=== PATIENT | male | born 1965 | race Caucasian/White ===

== ENCOUNTER 2016-11-09 13:40 | Emergency (ER) | payer SELFPAY ==
[2016-11-09] MEDS ORDERED: Sodium Chloride 0.9% 10 ML Syringe FLUSH PRN (15:03)
[2016-11-09] MEDS ORDERED: Iopamidol 612 MG/ML 150 ML Bottle IVPUSH ONE (16:30)
[2016-11-09] MEDS ORDERED: Diatrizoate Meglumine/Diatrizoate Sodium 37% 120 ML Bottle PO ONE (16:30)
[2016-11-09] MEDS ORDERED: metroNIDAZOLE/Normal Saline 500 MG in Premix Bag 1 BAG IV ONE (17:32)
[2016-11-09] MEDS ORDERED: Levofloxacin/Dextrose 5%-Water 750 MG in Premix Bag 1 BAG IV ONE (17:32)
--- NOTE | 2016-11-09 18:03 | EDM.PDOC ---
ED HPI GENERAL MEDICAL PROBLEM - General Chief Complaint: Abdominal Pain Stated Complaint: ABDOMINAL PAIN Time Seen by Provider: 11/09/16 13:51 Source of Information: Reports: Patient History Limitations: Reports: No Limitations - History of Present Illness INITIAL COMMENTS - FREE TEXT/NARRATIVE: The patient presents with lower abdominal pain that has been there for about 1 week. He has no nausea or vomiting. He can still eat and food does not affect the pain. He has no nausea or vomiting. He has no diarrhea or constipation. He has no dysuria. He still has his appendix and gallbladder. He has no fever , chills, chest pain or shortness of breath. Onset: Gradual Duration: Week(s): (over 1 week) Location: Reports: Abdomen Quality: Reports: Sharp Severity: Moderate Improves with: Reports: None Worsens with: Reports: None Associated Symptoms: Denies: Fever/Chills, Nausea/Vomiting, Shortness of Breath Lower Abdominal Pain Score (Numeric/FACES): 4 - Related Data Allergies Allergy/AdvReac Type Severity Reaction Status Date / Time No Known Allergies Allergy Verified 11/09/16 13:54 Home Meds: Home Meds Aspirin [Lo-Dose Aspirin EC] 81 mg PO DAILY 11/09/16 [History] Teriflunomide [Aubagio] 14 mg PO DAILY 11/09/16 [History] Zolpidem [Ambien] 10 mg PO BEDTIME PRN 11/09/16 [History] Past Medical History - Past Health History Medical/Surgical History: Denies Medical/Surgical History Neurological History: Reports: MS Social & Family History - Family History Family Medical History: Noncontributory - Tobacco Use Smoking Status *Q: Never Smoker - Caffeine Use Caffeine Use: Reports: Coffee, Soda - Recreational Drug Use Recreational Drug Use: No ED ROS GENERAL - Review of Systems Review Of Systems: See Below Constitutional: Reports: No Symptoms HEENT: Reports: No Symptoms Respiratory: Reports: No Symptoms Cardiovascular: Reports: No Symptoms Endocrine: Reports: No Symptoms GI/Abdominal: Reports: Abdominal Pain. Denies: Constipation, Diarrhea, Nausea, Vomiting : Reports: No Symptoms Musculoskeletal: Reports: No Symptoms ED EXAM, GI/ABD - Physical Exam Exam: See Below Exam Limited By: No Limitations General Appearance: Alert, No Apparent Distress Ears: Normal External Exam Nose: Normal Inspection Head: Atraumatic, Normocephalic Neck: Normal Inspection Respiratory/Chest: No Respiratory Distress, Lungs Clear, Normal Breath Sounds Cardiovascular: Regular Rate, Rhythm, No Edema, No Murmur GI/Abdominal Exam: Soft, No Organomegaly, No Mass, Tender (Moderate to the lower abdomen) Course - Vital Signs Last Recorded V/S: Last Vital Signs Temp 98.1 F 11/09/16 13:50 Pulse 94 11/09/16 13:50 Resp 16 11/09/16 13:50 BP 137/92 H 11/09/16 13:50 Pulse Ox 97 11/09/16 13:50 - Orders/Labs/Meds Orders: Active Orders 24 hr Category Date Time Status Peripheral IV Care [RC] . DIRECTED Care 11/09/16 15:03 Active Abdomen 1V Upright [CR] Stat Exams 11/09/16 14:06 Taken Abdomen Pelvis w Cont [CT] Stat Exams 11/09/16 15:03 Taken Levofloxacin/Dextrose 5%-Water [Levaquin in D5W 750 MG/ Med 11/09/16 17:32 Active 150 ML] 750 mg Premix Bag 1 bag IV ONETIME Sodium Chloride 0.9% [Saline Flush] Med 11/09/16 15:03 Active 10 ml FLUSH ASDIRECTED PRN metroNIDAZOLE/Normal Saline [Flagyl 500 MG in NS 100 ML Med 11/09/16 17:32 Active ] 500 mg Premix Bag 1 bag IV ONETIME Peripheral IV Insertion Adult [OM.PC] Routine Oth 11/09/16 15:03 Ordered Medication Orders Levofloxacin/Dextrose 750 mg/ (Premix) 150 mls @ 100 mls/hr IV ONETIME ONE Stop: 11/09/16 19:01 Metronidazole 500 mg/ Premix 100 mls @ 100 mls/hr IV ONETIME ONE Stop: 11/09/16 18:31 Sodium Chloride (Saline Flush) 10 ml FLUSH ASDIRECTED PRN PRN Reason: Keep Vein Open Last Admin: 11/09/16 16:47 Dose: 10 ml Labs: Laboratory Tests 11/09/16 11/09/16 11/09/16 Range/Units 14:20 14:20 14:40 WBC 15.04 H (4.23-9.07) K/mm3 RBC 4.13 L (4.63-6.08) M/mm3 Hgb 10.5 L (13.7-17.5) gm/L Hct 32.4 L (40.1-51.0) % MCV 78.5 L (79.0-92.2) fl MCH 25.4 L (25.7-32.2) pg MCHC 32.4 (32.2-35.5) g/dl RDW Std Deviation 44.5 H (35.1-43.9) fL Plt Count 608 H (163-337) K/mm3 MPV 8.3 L (9.4-12.3) fl Neut % (Auto) 79.2 H (34.0-67.9) % Lymph % (Auto) 4.6 L (21.8-53.1) % [place] % (Auto) 14.4 H (5.3-12.2) % Eos % (Auto) 0.7 L (0.8-7.0) Baso % (Auto) 0.4 (0.1-1.2) % Neut # (Auto) 11.93 H (1.78-5.38) K/mm3 Lymph # (Auto) 0.69 L (1.32-3.57) K/mm3 [place] # (Auto) 2.16 H (0.30-0.82) K/mm3 Eos # (Auto) 0.10 (0.04-0.54) K/mm3 Baso # (Auto) 0.06 (0.01-0.08) K/mm3 Manual Slide Review Abnormal smear Sodium 134 L (136-145) mEq/L Potassium 3.8 (3.5-5.1) mEq/L Chloride 99 (98-107) mEq/L Carbon Dioxide 24 (21-32) mEq/L Anion Gap 14.8 (5-15) BUN 11 (7-18) mg/dL Creatinine 1.1 (0.7-1.3) mg/dL Est Cr Clr Drug Dosing 78.59 mL/min Estimated GFR (MDRD) > 60 (>60) mL/min BUN/Creatinine Ratio 10.0 L (14-18) Glucose 106 (74-106) mg/dL Calcium 9.0 (8.5-10.1) mg/dL Total Bilirubin 0.6 (0.2-1.0) mg/dL AST 34 (15-37) U/L ALT 66 H (16-63) U/L Alkaline Phosphatase 133 H (46-116) U/L Total Protein 8.1 (6.4-8.2) g/dl Albumin 2.9 L (3.4-5.0) g/dl Globulin 5.2 gm/dL Albumin/Globulin Ratio 0.6 L (1-2) Lipase 98 (73-393) U/L Urine Color Yellow (Yellow) Urine Appearance Clear (Clear) Urine pH 6.5 (5.0-8.0) Ur Specific [place] 1.025 (1.005-1.030) Urine Protein 2+ H (Negative) Urine Glucose (UA) Negative (Negative) Urine Ketones Negative (Negative) Urine Occult Blood Negative (Negative) Urine Nitrite Negative (Negative) Urine Bilirubin Negative (Negative) Urine Urobilinogen 0.2 (0.2-1.0) Ur Leukocyte Esterase Negative (Negative) Urine RBC Not seen (0-5) /hpf Urine WBC Not seen (0-5) /hpf Ur Epithelial Cells Not seen (0-5) /hpf Urine Bacteria Few (FEW) /hpf Urine Mucus Not seen (FEW) /hpf Urine Yeast Not seen (NOT SEEN) Meds: Medications Generic Name Dose Route Start Last Admin Trade Name Freq PRN Reason Stop Dose Admin Levofloxacin/Dextrose 750 mg/ 150 mls @ 100 mls/hr 11/09/16 17:32 Premix IV 11/09/16 19:01 ONETIME ONE Metronidazole 500 mg/ Premix 100 mls @ 100 mls/hr 11/09/16 17:32 IV 11/09/16 18:31 ONETIME ONE Sodium Chloride 10 ml 11/09/16 15:03 11/09/16 16:47 Saline Flush FLUSH 10 ml ASDIRECTED PRN Administration Keep Vein Open Discontinued Medications Generic Name Dose Route Start Last Admin Trade Name Freq PRN Reason Stop Dose Admin Diatrizoate Meglum/Diatrizoate Sod 90 ml 11/09/16 16:30 11/09/16 16:47 Gastrografin 37% PO 11/09/16 16:31 90 ml ONETIME ONE Administration Iopamidol 125 ml 11/09/16 16:30 11/09/16 16:47 Isovue-300 (61%) IVPUSH 11/09/16 16:31 125 ml ONETIME ONE Administration - Re-Assessments/Exams Free Text/Narrative Re-Assessment/Exam: 11/09/16 18:06 The patient wanted to do this as cheep as possible. I ordered labs and an abdominal x-ray. His WBC was elevated at 15,000 so I ordered an IV and a CT of his abdomen and pelvis. The CT shows diffuse thickening of a long segment of distal small bowel extending into the terminal ileum. Medial to the ileocecal valve is a collection of gas and enteric contrast measuring 5 X 4.7 X 4.5cm. There is question of additional focal possible ulceration along the medial border of the small bowel, with a pocket of contrast and gas, fairly well- contained measuring 8mm. This is best appreciated on coronal reconstructions. There is question of additional mild thickening of the rectosigmoid colon. No findings to suggest acute appendicitis. I ordered levaquin 750mg IV and flagyl 500mg IV. I called Dr Horta our general surgeon long haul truck driver and he felt this was not someone we can take care of here. I talked to Dr Fisher and he accepted the patient. Departure - Departure Time of Disposition: 18:10 Disposition: DC/Tfer to [facility] Condition: Serious Clinical Impression: Perforated viscus - Discharge Information Forms: ED Department Discharge - My Orders Last 24 Hours: My Active Orders 11/09/16 14:06 Abdomen 1V Upright [CR] Stat 11/09/16 15:03 Peripheral IV Care [RC] . DIRECTED Abdomen Pelvis w Cont [CT] Stat Sodium Chloride 0.9% [Saline Flush] 10 ml FLUSH ASDIRECTED PRN Peripheral IV Insertion Adult [OM.PC] Routine 11/09/16 17:32 Levofloxacin/Dextrose 5%-Water [Levaquin in D5W 750 MG/150 ML] 750 mg Premix Bag 1 bag IV ONETIME metroNIDAZOLE/Normal Saline [Flagyl 500 MG in NS 100 ML] 500 mg Premix Bag 1 bag IV ONETIME - Assessment/Plan Last 24 Hours: My Active Orders 11/09/16 14:06 Abdomen 1V Upright [CR] Stat 11/09/16 15:03 Peripheral IV Care [RC] . DIRECTED Abdomen Pelvis w Cont [CT] Stat Sodium Chloride 0.9% [Saline Flush] 10 ml FLUSH ASDIRECTED PRN Peripheral IV Insertion Adult [OM.PC] Routine 11/09/16 17:32 Levofloxacin/Dextrose 5%-Water [Levaquin in D5W 750 MG/150 ML] 750 mg Premix Bag 1 bag IV ONETIME metroNIDAZOLE/Normal Saline [Flagyl 500 MG in NS 100 ML] 500 mg Premix Bag 1 bag IV ONETIME
[2016-11-09 18:16] VITALS: BP 142/97
[2016-11-09] MEDS ORDERED: Lactated Ringers 1,000 ML IV SCH (18:30)
--- NOTE | 2016-11-11 10:32 | CR ---
Abdomen: Upright view of the abdomen was obtained. Liver is slightly generous in size. Bowel gas pattern is normal. No abnormal calcifications or discrete soft tissue abnormality is seen. Impression: 1. Generous liver size. 2. Upright abdominal x-ray is otherwise unremarkable. Diagnostic code #2
--- NOTE | 2016-11-11 10:32 | CT ---
CT abdomen and pelvis Technique: Multiple axial sections were obtained from above the dome of the diaphragm inferiorly through the pubic symphysis. Intravenous and oral contrast was utilized. Comparison: No prior CT exam, previous abdominal x-ray performed earlier on the same date (2:15 PM). Findings: Inflammatory-type bowel wall thickening is seen within the distal ileum. Extraluminal collection of contrast and air is seen next to the terminal ileum. This collection of air and contrast is compatible with perforation and abscess. This finding measures about 5.4 cm in size. There is also mild bowel wall thickening of the sigmoid colon. No small bowel dilatation is seen. Appendix is seen which appears normal. Visualized lung bases show nothing acute. Liver is mildly generous in size but no focal abnormality is identified. Spleen appears within normal limits. Adrenal glands show no nodule. Kidneys show symmetric contrast enhancement without hydronephrosis or mass. Aorta shows no aneurysmal dilatation. No retroperitoneal adenopathy or mesenteric abnormalities are seen. Pancreas appears within normal limits. No pelvic mass or adenopathy is seen. Delayed images show contrast within the bladder. Bone window settings were reviewed which appear within normal limits for the patient's age. Impression: 1. Prominent bowel wall thickening within the distal ileum. Collection of air and contrast next to the distal ileum compatible with perforation and abscess. Bowel wall thickening noted within the sigmoid colon. Findings are felt compatible with inflammatory bowel disease with most likely etiology being Crohn's disease. 2. Generous size of the liver felt to be incidental. 3. Nothing else acute is appreciated on CT study of the abdomen and pelvis. Diagnostic code #5 Agree with preliminary report issued by [facility] ([facility] preliminary report dictated on 11/09/16, 6:07 PM Central Time)
== END 2016-11-09 18:52 ==
LOC: JD.ED 13:40
DX: K63.1 Perforation of intestine (nontraumatic) (principal); Z79.82 Long term (current) use of aspirin; Z79.899 Other long term (current) drug therapy
CPT/HCPCS: 36415; 74000; 74177; 80053; 81001; 83690; 85025; 96365; 99285; J1956; J7050; J7120; Q9963; Q9967

== ENCOUNTER 2020-03-22 07:29 | Emergency (ER) | payer SELFPAY ==
[2020-03-22] MEDS ORDERED: Sodium Chloride 0.9% 10 ML Syringe FLUSH PRN (08:06)
[2020-03-22] MEDS ORDERED: Sodium Chloride 0.9% 1,000 ML IV SCH (08:15)
--- NOTE | 2020-03-22 08:19 | EDM.PDOC ---
ED HPI GENERAL MEDICAL PROBLEM - General Chief Complaint: Fever Stated Complaint: COVID + Time Seen by Provider: 03/22/20 07:38 Source of Information: Reports: Patient History Limitations: Reports: No Limitations - History of Present Illness INITIAL COMMENTS - FREE TEXT/NARRATIVE: The patient presents with a fever, cough and shortness of breath. This has been going on for a few days. He is COVID 19 positive. He said Thursday he started having a cough and he got tested Thursday. He came back positive. He has a fever, cough, generalized weakness and diarrhea. He has MS. He does not smoke. He has no lung issues such as asthma or COPD. He has no cardiac history. He has no hypertension or hypercholesterolemia. He does have some chest tightness and shortness of breath. Onset: Gradual Duration: Week(s): Location: Reports: Chest Quality: Reports: Other (tightness) Severity: Mild Improves with: Reports: None Worsens with: Reports: None Associated Symptoms: Reports: Chest Pain, Cough, Fever/Chills, Shortness of Breath. Denies: Headaches, Nausea/Vomiting - Related Data Allergies Allergy/AdvReac Type Severity Reaction Status Date / Time Penicillins Allergy Hives Verified 03/22/20 07:44 Home Meds: Home Meds Aspirin [Lo-Dose Aspirin EC] 81 mg PO DAILY 11/09/16 [History] Teriflunomide [Aubagio] 14 mg PO DAILY 11/09/16 [History] Zolpidem [Ambien] 10 mg PO BEDTIME PRN 11/09/16 [History] Past Medical History - Past Health History Medical/Surgical History: Denies Medical/Surgical History Neurological History: Reports: MS Social & Family History - Family History Family Medical History: No Pertinent Family History - Tobacco Use Tobacco Use Status *Q: Never Tobacco User - Caffeine Use Caffeine Use: Reports: None - Recreational Drug Use Recreational Drug Use: Yes Recreational Drug Type: Reports: Marijuana/Hashish ED ROS GENERAL - Review of Systems Review Of Systems: See Below Constitutional: Reports: Fever, Chills, Malaise, Weakness, Fatigue HEENT: Reports: No Symptoms Respiratory: Reports: Shortness of Breath, Cough Cardiovascular: Reports: Chest Pain Endocrine: Reports: No Symptoms GI/Abdominal: Reports: Diarrhea. Denies: Abdominal Pain, Nausea, Vomiting : Reports: No Symptoms Musculoskeletal: Reports: No Symptoms Skin: Reports: No Symptoms ED EXAM, GENERAL - Physical Exam Exam: See Below Exam Limited By: No Limitations General Appearance: Alert, No Apparent Distress Ears: Normal External Exam Nose: Normal Inspection Head: Atraumatic, Normocephalic Neck: Normal Inspection Respiratory/Chest: No Respiratory Distress, Lungs Clear, Normal Breath Sounds Cardiovascular: Regular Rate, Rhythm, No Edema, No Murmur GI/Abdominal: Soft, Non-Tender, No Organomegaly, No Mass Back Exam: Normal Inspection Extremities: Normal Inspection #1 Interpretation EKG Date: 03/22/20 Time: 08:54 Rhythm: NSR Rate (Beats/Min): 92 [place]: Normal P-Wave: Present QRS: Normal ST-T: Normal QT: Prolonged Course - Vital Signs Last Recorded V/S: Last Vital Signs Temp 99.5 F 03/22/20 07:40 Pulse 108 H 03/22/20 07:40 Resp 20 03/22/20 07:40 BP 153/67 H 03/22/20 07:40 Pulse Ox 95 03/22/20 07:40 - Orders/Labs/Meds Orders: Active Orders 24 hr Category Date Time Status Cardiac Monitoring [RC] . DIRECTED Care 03/22/20 08:06 Active EKG Documentation Completion [RC] STAT Care 03/22/20 08:06 Active Peripheral IV Care [RC] . DIRECTED Care 03/22/20 08:06 Active Sodium Chloride 0.9% [Normal Saline] 1,000 ml Med 03/22/20 08:15 Active IV .BOLUS Sodium Chloride 0.9% [Saline Flush] Med 03/22/20 08:06 Active 10 ml FLUSH ASDIRECTED PRN Peripheral IV Insertion Adult [OM.PC] Stat Oth 03/22/20 08:06 Ordered Medication Orders Sodium Chloride (Normal Saline) 1,000 mls @ 1,000 mls/hr IV .BOLUS CHIDI Last Admin: 03/22/20 08:36 Dose: 1,000 mls/hr Documented by: GARTH Sodium Chloride (Saline Flush) 10 ml FLUSH ASDIRECTED PRN PRN Reason: Keep Vein Open Last Admin: 03/22/20 08:37 Dose: 10 ml Documented by: GARTH Labs: Laboratory Tests 12/31/20 12/31/20 12/31/20 Range/Units 08:35 08:35 08:35 WBC 7.34 (4.23-9.07) K/mm3 RBC 5.24 (4.63-6.08) M/mm3 Hgb 13.4 L D (13.7-17.5) gm/dl Hct 42.5 (40.1-51.0) % MCV 81.1 (79.0-92.2) fl MCH 25.6 L (25.7-32.2) pg MCHC 31.5 L (32.2-35.5) g/dl RDW Std Deviation 50.9 H (35.1-43.9) fL Plt Count 319 D (163-337) K/mm3 MPV 8.8 L (9.4-12.3) fl Neut % (Auto) 88.2 H (34.0-67.9) % Lymph % (Auto) 4.9 L (21.8-53.1) % [place] % (Auto) 4.6 L (5.3-12.2) % Eos % (Auto) 1.2 (0.8-7.0) Baso % (Auto) 0.4 (0.1-1.2) % Neut # (Auto) 6.47 H (1.78-5.38) K/mm3 Lymph # (Auto) 0.36 L (1.32-3.57) K/mm3 [place] # (Auto) 0.34 (0.30-0.82) K/mm3 Eos # (Auto) 0.09 (0.04-0.54) K/mm3 Baso # (Auto) 0.03 (0.01-0.08) K/mm3 Manual Slide Review Abnormal smear D-Dimer, Quantitative 1.09 H (0.19-0.50) mg/L Sodium 131 L (136-145) mEq/L Potassium 3.4 L (3.5-5.1) mEq/L Chloride 101 (98-107) mEq/L Carbon Dioxide 23 (21-32) mEq/L Anion Gap 10.4 (5-15) BUN 13 (7-18) mg/dL Creatinine 1.3 (0.7-1.3) mg/dL Est Cr Clr Drug Dosing 63.58 mL/min Estimated GFR (MDRD) 58 (>60) mL/min BUN/Creatinine Ratio 10.0 L (14-18) Glucose 104 (74-106) mg/dL Lactic Acid (0.4-2.0) mmol/L Calcium 9.0 (8.5-10.1) mg/dL Ferritin (26-388) ng/ml Total Bilirubin 0.5 (0.2-1.0) mg/dL AST 20 (15-37) U/L ALT 39 (16-63) U/L Alkaline Phosphatase 79 (46-116) U/L Lactate Dehydrogenase 187 (85-227) U/L Troponin I < 0.017 (0.00-0.056) ng/mL C-Reactive Protein 10.7 H* (<1.0) mg/dL Total Protein 7.8 (6.4-8.2) g/dl Albumin 3.3 L (3.4-5.0) g/dl Globulin 4.5 gm/dL Albumin/Globulin Ratio 0.7 L (1-2) 03/22/20 03/22/20 Range/Units 08:35 08:35 WBC (4.23-9.07) K/mm3 RBC (4.63-6.08) M/mm3 Hgb (13.7-17.5) gm/dl Hct (40.1-51.0) % MCV (79.0-92.2) fl MCH (25.7-32.2) pg MCHC (32.2-35.5) g/dl RDW Std Deviation (35.1-43.9) fL Plt Count (163-337) K/mm3 MPV (9.4-12.3) fl Neut % (Auto) (34.0-67.9) % Lymph % (Auto) (21.8-53.1) % [place] % (Auto) (5.3-12.2) % Eos % (Auto) (0.8-7.0) Baso % (Auto) (0.1-1.2) % Neut # (Auto) (1.78-5.38) K/mm3 Lymph # (Auto) (1.32-3.57) K/mm3 [place] # (Auto) (0.30-0.82) K/mm3 Eos # (Auto) (0.04-0.54) K/mm3 Baso # (Auto) (0.01-0.08) K/mm3 Manual Slide Review D-Dimer, Quantitative (0.19-0.50) mg/L Sodium (136-145) mEq/L Potassium (3.5-5.1) mEq/L Chloride (98-107) mEq/L Carbon Dioxide (21-32) mEq/L Anion Gap (5-15) BUN (7-18) mg/dL Creatinine (0.7-1.3) mg/dL Est Cr Clr Drug Dosing mL/min Estimated GFR (MDRD) (>60) mL/min BUN/Creatinine Ratio (14-18) Glucose (74-106) mg/dL Lactic Acid 1.5 (0.4-2.0) mmol/L Calcium (8.5-10.1) mg/dL Ferritin 312 (26-388) ng/ml Total Bilirubin (0.2-1.0) mg/dL AST (15-37) U/L ALT (16-63) U/L Alkaline Phosphatase (46-116) U/L Lactate Dehydrogenase (85-227) U/L Troponin I (0.00-0.056) ng/mL C-Reactive Protein (<1.0) mg/dL Total Protein (6.4-8.2) g/dl Albumin (3.4-5.0) g/dl Globulin gm/dL Albumin/Globulin Ratio (1-2) Meds: Medications Generic Name Dose Route Start Last Admin Trade Name Freq PRN Reason Stop Dose Admin Sodium Chloride 1,000 mls @ 1,000 mls/hr 03/22/20 08:15 03/22/20 08:36 Normal Saline IV 1,000 mls/hr .BOLUS CHIDI Administration Sodium Chloride 10 ml 03/22/20 08:06 03/22/20 08:37 Saline Flush FLUSH 10 ml ASDIRECTED PRN Administration Keep Vein Open Discontinued Medications Generic Name Dose Route Start Last Admin Trade Name Freq PRN Reason Stop Dose Admin Non-Formulary Medication 1,200 250 mls @ 250 mls/hr 03/22/20 09:00 03/22/20 08:46 mg/ Non-Formulary Medication IV 03/22/20 09:59 250 mls/hr 1,200 mg/ Sodium Chloride ONETIME ONE Administration - Re-Assessments/Exams Free Text/Narrative Re-Assessment/Exam: 03/22/20 08:26 I ordered an IV NS 1L bolus, CXR, EKG and labs. I consulted with pharmacy and because of the patient's MS he is eligible to get the regeneron the multiclonal antibody. I spoke with the patient to provide information about regeneron treatment. I offered them the "Patient and Caregiver/EUA Regeneron Fact Sheet" to read and review. I stated the drug has been approved by an emergency use authorization process and has not fully been FDA reviewed or approved. The patient meets the EUA requirements. I discussed there are other potential treatment options that are currently not FDA approved to treat COVID 19. I offered the opportunity to ask questions and all questions were answered. The patient voiced understanding and agreed to proceed with treatment. 03/22/20 09:35 His EKG shows a NSR with no acute changes. His CXR shows slightly increased lung markings as described above. No alveolar areas of pneumonia are seen. His CBC was negative. His D-dimer was elevated at 1.09 consistent with COVID 19 infection. His K was a little low at 3.4. His troponin is negative. His CRP is elevated at 10.7. The regeneron has been started. He is tolerating it well. 03/22/20 10:52 The hour after infusion is up. I will discharge him home. Departure - Departure Time of Disposition: 10:55 Disposition: Home, Self-Care 01 Condition: Good Clinical Impression: COVID-19 - Discharge Information *PRESCRIPTION DRUG MONITORING PROGRAM REVIEWED*: Not Applicable *COPY OF PRESCRIPTION DRUG MONITORING REPORT IN PATIENT ANTWON: Not Applicable Referrals: PCP,None [Primary Care Provider] - Forms: ED Department Discharge Additional Instructions: Take motrin or tylenol for any fever or chills. Please return if you are worse such as more weakness, more shortness of breath and more coughing. Go to [facility] or any local pharmacy and see if you can get a pulse oximeter. It checks the percentage of oxygen in your blood. Please return if you are consistently below 90%. Sepsis Event Note (ED) - Evaluation Sepsis Screening Result: Possible Sepsis Risk - Focused Exam Vital Signs: Vital Signs Temp Pulse Resp BP Pulse Ox 03/22/20 07:40 99.5 F 108 H 20 153/67 H 95 - My Orders Last 24 Hours: My Active Orders 03/22/20 08:06 Cardiac Monitoring [RC] . DIRECTED EKG Documentation Completion [RC] STAT Peripheral IV Care [RC] . DIRECTED Sodium Chloride 0.9% [Saline Flush] 10 ml FLUSH ASDIRECTED PRN Peripheral IV Insertion Adult [OM.PC] Stat 03/22/20 08:15 Sodium Chloride 0.9% [Normal Saline] 1,000 ml IV .BOLUS - Assessment/Plan Last 24 Hours: My Active Orders 03/22/20 08:06 Cardiac Monitoring [RC] . DIRECTED EKG Documentation Completion [RC] STAT Peripheral IV Care [RC] . DIRECTED Sodium Chloride 0.9% [Saline Flush] 10 ml FLUSH ASDIRECTED PRN Peripheral IV Insertion Adult [OM.PC] Stat 03/22/20 08:15 Sodium Chloride 0.9% [Normal Saline] 1,000 ml IV .BOLUS
[2020-03-22] MEDS ORDERED: Casirivimab 1,200 MG, Imdevimab 1,200 MG in Sodium Chloride 0.9% 230 ML IV ONE (09:00)
--- NOTE | 2020-03-22 09:05 | CR ---
Chest: Portable view of the chest was obtained. Comparison: No prior chest imaging is available. Heart size and mediastinum are normal. Lung markings are slightly increased. Difficult to exclude mild bronchitis or mild interstitial pneumonia. Lungs otherwise are clear. Bony structures are grossly intact. Impression: 1. Slightly increased lung markings as described above. 2. No alveolar areas of pneumonia are seen. Diagnostic code #3
[2020-03-22 11:50] VITALS: BP 110/70; PULSE 107
== END 2020-03-22 11:10 | disposition home or self-care (01) ==
LOC: JD.ED 07:29
DX: U07.1 COVID-19 (principal); G35 Multiple sclerosis; Z88.0 Allergy status to penicillin; Z79.82 Long term (current) use of aspirin; Z79.899 Other long term (current) drug therapy
CPT/HCPCS: 36415; 71045; 80053; 82728; 83605; 83615; 84484; 85025; 85379; 86140; 93005; 99285; J7030; J7050; M0243

== ENCOUNTER 2021-10-09 11:19 | Emergency (ER) | payer BC, OTHER ==
[2021-10-09 11:31] VITALS: BP 163/98; PULSE 88
[2021-10-09] MEDS ORDERED: methylPREDNISolone Sodium Succinate 125 MG/2 ML SDV IM ONE (11:58)
== END 2021-10-09 12:40 | disposition home or self-care (01) ==
LOC: JD.ED 11:19
DX: G35 Multiple sclerosis (principal); I10 Essential (primary) hypertension; Z88.0 Allergy status to penicillin; Z79.899 Other long term (current) drug therapy; Z79.82 Long term (current) use of aspirin
CPT/HCPCS: 93005; 96372; 99284; J2930

== ENCOUNTER 2022-05-19 02:19 | Emergency (ER) | payer BC ==
[2022-05-19] MEDS ORDERED: Potassium Chloride 20 MEQ Tab.ER PO ONE (03:56)
[2022-05-19 03:57] LABS: CORONAVIRUS COVID-19 NAA NEGATIVE (NEGATIVE)
[2022-05-19] MEDS ORDERED: cefTRIAXone 2 GM in Sodium Chloride 0.9% 100 ML IV ONE (04:31)
[2022-05-19] MEDS ORDERED: Acetaminophen 325 MG Tab PO ONE ×2 (04:52→12:26)
[2022-05-19 06:18] VITALS: BP 110/65; PULSE 89
[2022-05-19] MEDS ORDERED: Iopamidol 755 Mg/ML 100 ML Bottle IVPUSH ONE (08:34)
[2022-05-19] MEDS ORDERED: Sodium Chloride 0.9% 10 ML Syringe FLUSH ONE (08:34)
[2022-05-19] MEDS ORDERED: Sodium Chloride 0.9% 100 ML IV SCH (08:45)
[2022-05-19] MEDS ORDERED: Albuterol/Ipratropium 3.0-0.5 MG/3 ML Neb Soln NEB ONE (08:55)
[2022-05-19] MEDS ORDERED: Heparin Sodium/D5W 25,000 UNITS/500 ML BAG IV SCH (10:15)
[2022-05-19] MEDS ORDERED: HYDROmorphone 0.5 MG/0.5 ML Syringe IVPUSH ONE (12:36)
== END 2022-05-19 12:56 ==
LOC: JD.ED 02:19
DX: J18.9 Pneumonia, unspecified organism (principal); I21.4 Non-ST elevation (NSTEMI) myocardial infarction; R09.02 Hypoxemia; I10 Essential (primary) hypertension; Z88.0 Allergy status to penicillin; Z79.82 Long term (current) use of aspirin; Z20.822 Contact with and (suspected) exposure to COVID-19
CPT/HCPCS: 0240U; 36415; 71046; 71046-26; 71275; 71275-26; 80053; 83605; 84484; 85025; 85610; 85730; 87040; 93005; 93010; 94640; 96365; 96366; 96367; 96375; 99285; 99285-25; A9270-GY; J0696; J1170; J1644; J3490; J7620-GY; Q9967

== ENCOUNTER 2023-03-24 00:57 | Emergency (ER) | payer BC ==
[2023-03-24] MEDS ORDERED: cefTRIAXone 1 GM in Sodium Chloride 0.9% 100 ML IV ONE (01:42)
[2023-03-24] MEDS ORDERED: guaiFENesin/Dextromethorphan 100-10 MG/5 ML Soln 5 ML Cup PO ONE (01:45)
[2023-03-24 01:47] LABS: BASOPHILS ABSOLUTE AUTO 0.1 K/mm3 (0.0-0.2); BASOPHILS PERCENT AUTO 0.8 % (0.0-1.0); EOSINOPHILS ABSOLUTE AUTO 0.4 K/mm3 (0.0-0.4); EOSINOPHILS PERCENT AUTO 4.1 % (0.0-6.0); HEMATOCRIT 40.4 % (42.0-52.0); HEMOGLOBIN 13.2 gm/dl (14.0-18.0); IMMATURE GRAN ABSOLUTE AUTO 0.03 K/mm3 (0.00-0.05); IMMATURE GRAN PERCENT AUTO 0.3 % (0.0-0.4); LYMPHOCYTES ABSOLUTE AUTO 0.5 K/mm3 (1.0-4.8); LYMPHOCYTES PERCENT AUTO 5.1 % (24.0-44.0); MEAN CORPUSCULAR HEMOGLOBIN 26.4 pg (28.0-32.0); MEAN CORPUSCULAR HGB CONC 32.7 g/dl (32.0-36.0); MEAN CORPUSCULAR VOLUME 80.8 fl (83.0-99.0); MEAN PLATELET VOLUME 8.7 fl (9.4-12.4); MONOCYTES ABSOLUTE AUTO 0.6 K/mm3 (0.0-0.8); MONOCYTES PERCENT AUTO 5.7 % (0.0-8.0); PLATELET COUNT,PLT 292 K/mm3 (150-400); WHITE BLOOD CELL COUNT,WBC 9.57 K/mm3 (3.9-11.3)
[2023-03-24] MEDS ORDERED: Sulfamethoxazole/Trimethoprim 800-160 MG Tab PO ONE (01:47)
[2023-03-24 02:10] LABS: CORONAVIRUS COVID-19 NAA NEGATIVE (NEGATIVE); INFLUENZA A NAA POSITIVE (NEGATIVE); RESPIRATORY SYNCYTIAL VIR NAA NEGATIVE (NEGATIVE)
[2023-03-24 02:15] LABS: A/G RATIO 0.8 (1-2); ALBUMIN 3.5 g/dl (3.4-5.0); ANION GAP 15.8 (5-15); BILIRUBIN TOTAL 0.4 mg/dL (0.2-1.0); BUN/CREATININE RATIO 14.2 (14-18); CALCIUM 8.9 mg/dL (8.5-10.1); CREATININE 1.2 mg/dL (0.7-1.3); EST CRCL DRUG DOSING (CG) 66.5 mL/min; MAGNESIUM 1.6 mg/dL (1.8-2.4); POTASSIUM,K 3.8 mEq/L (3.5-5.1); PROTEIN TOTAL,TP 7.7 g/dl (6.4-8.2)
[2023-03-24] MEDS ORDERED: Ibuprofen 600 MG Tab ONE (02:52)
[2023-03-24 03:13] VITALS: BP 127/84; PULSE 102
== END 2023-03-24 02:58 | disposition home or self-care (01) ==
LOC: JD.ED 00:57
DX: J10.1 Influenza due to other identified influenza virus with other respiratory manifestations (principal); J18.9 Pneumonia, unspecified organism; G35 Multiple sclerosis; I10 Essential (primary) hypertension; Z20.822 Contact with and (suspected) exposure to COVID-19; Z87.891 Personal history of nicotine dependence; Z79.82 Long term (current) use of aspirin; Z79.899 Other long term (current) drug therapy; Z88.0 Allergy status to penicillin
CPT/HCPCS: 0241U; 36415; 71046; 80053; 83735; 85025; 96365; 99285; A9270; J0696; J3490